=== PATIENT | female | born 1950 | race Native Hawaiian/Other Pacific Islander ===

== ENCOUNTER 2019-03-22 15:18 | Outpatient (CLI) | payer OTHER ==
[~2019-03-22 15:18] MED LIST: ALPR0.5T24 PO; BENZ100C8 PO; LEVAQUIN500 MG OR; LEVO0.117 PO
[2019-03-22 15:56] LABS: PLATELET COUNT 288 K/uL (152-353)
[2019-03-22 16:12] LABS: POTASSIUM 4.7 mmol/L (3.6-5.2)
== END 2019-03-22 19:11 | disposition home or self-care (01) ==
LOC: LAB 15:18
PROVIDERS: Nurse Practitioner Family
DX: Z00.00 Encounter for general adult medical examination without abnormal findings (principal); F32.9 Major depressive disorder, single episode, unspecified; E03.8 Other specified hypothyroidism; F41.8 Other specified anxiety disorders; Z79.899 Other long term (current) drug therapy; R53.83 Other fatigue; R53.81 Other malaise
CPT/HCPCS: 80053; 80061; 83036; 84439; 84443; 85027

== ENCOUNTER 2021-12-18 13:38 | Outpatient (CLI) | payer OTHER ==
[2021-12-18 13:52] LABS: PLATELET COUNT 286 K/uL (152-353)
[2021-12-18 14:19] LABS: POTASSIUM 4.5 mmol/L (3.6-5.2)
== END 2021-12-18 19:07 | disposition home or self-care (01) ==
LOC: LAB 13:38
PROVIDERS: ATTEND Nurse Practitioner Family
DX: F41.8 Other specified anxiety disorders (principal); E03.8 Other specified hypothyroidism; E78.49 Other hyperlipidemia; F32.9 Major depressive disorder, single episode, unspecified; R53.83 Other fatigue; Z79.899 Other long term (current) drug therapy; R53.81 Other malaise; R73.09 Other abnormal glucose; E55.9 Vitamin D deficiency, unspecified; E53.8 Deficiency of other specified B group vitamins
CPT/HCPCS: 80053; 80061; 82306; 82607; 83036; 84439; 84443; 85027

== ENCOUNTER 2022-03-06 18:14 | Emergency (ER) | payer OTHER ==
[~2022-03-06] VITALS: Ht 165.1 cm; Wt 106.6 kg
[2022-03-06 19:35] VITALS: BP 162/72; TEMP 98
== END 2022-03-06 19:35 | disposition home or self-care (01) ==
LOC: ED 18:14
PROC: 2W3QX1Z Immobilization of Right Lower Leg using Splint (ICD-10-PCS; principal; 2022-03-06)
PROC: 2W3RX1Z Immobilization of Left Lower Leg using Splint (ICD-10-PCS; 2022-03-06)
DX: S92.354A Nondisplaced fracture of fifth metatarsal bone, right foot, initial encounter for closed fracture (principal); M25.571 Pain in right ankle and joints of right foot; W10.8XXA Fall (on) (from) other stairs and steps, initial encounter; Y92.098 Other place in other non-institutional residence as the place of occurrence of the external cause
CPT/HCPCS: 99283

== ENCOUNTER 2022-06-03 11:14 | Outpatient (CLI) | payer OTHER | END 2022-06-03 19:04 | disposition home or self-care (01) | LOC: RAD 11:14 | PROVIDERS: ATTEND Nurse Practitioner Family | DX: Z13.820 Encounter for screening for osteoporosis (principal); N95.8 Other specified menopausal and perimenopausal disorders; S92.353A Displaced fracture of fifth metatarsal bone, unspecified foot, initial encounter for closed fracture; S92.301G Fracture of unspecified metatarsal bone(s), right foot, subsequent encounter for fracture with delayed healing; Y92.89 Other specified places as the place of occurrence of the external cause ==

== ENCOUNTER 2022-07-17 08:32 | Outpatient (CLI) | payer OTHER | END 2022-07-17 19:12 | disposition home or self-care (01) | LOC: US 08:32 | PROVIDERS: ATTEND Nurse Practitioner Family | DX: R74.8 Abnormal levels of other serum enzymes (principal) ==